=== PATIENT | female | born 1980 | race Caucasian/White ===

== ENCOUNTER → 2018-01-02 11:42 | Outpatient (CLI) | payer OTHER, SELFPAY ==
[2018-01-02 17:34] LABS: M R Staph aureus DNA By PCR Negative (Negative); Probe Check PASS; Specimen Processing Control PASS; Staph aureus DNA By PCR NEGATIVE (Negative)
[2018-01-03 03:51] LABS: Rapid Plasmin Reagin (RPR) NONREACTIVE (NONREACTIVE)
[2018-01-07 20:08] LABS: HSV 1 By PCR Negative (Negative); Immunoglobulin G 699 mg/dL (700-1600)
[2018-01-08 10:20] LABS: HSV 2 By PCR Negative (Negative); HSV 2 IgG < 0.91 index (0.00-0.90); Immunoglobulin M 38 mg/dL (26-217)
== END ==
PROVIDERS: Family Provider Physician Assistant; PCP Physician Assistant; Visit Provider Obstetrics & Gynecology
DX: Z11.3 Encounter for screening for infections with a predominantly sexual mode of transmission (principal)
CPT/HCPCS: 36415; 82784; 86592; 86695; 86696; 87529; 87640; 87902

== ENCOUNTER → 2018-07-16 13:39 | Outpatient (CLI) | payer OTHER, SELFPAY ==
[2018-07-19 12:50] LABS: HPV Reflexed? NOT INDICATED
== END ==
PROVIDERS: Visit Provider Obstetrics & Gynecology
DX: Z12.4 Encounter for screening for malignant neoplasm of cervix (principal)
CPT/HCPCS: 88175; G0145

== ENCOUNTER → 2018-12-15 10:12 | Outpatient (CLI) | payer OTHER, SELFPAY ==
--- NOTE | 2018-12-15 10:31 | MRI_ITS ---
STUDY: MRI LEFT ANKLE WITHOUT CONTRAST REASON FOR EXAM: Female, 38 years old. The patient presents with a history of lateral ankle pain with swelling. TECHNIQUE: Standardized fat and water weighted pulse sequences were obtained in all 3 orthogonal planes. COMPARISON: None. FINDINGS: Normal subcutis adipose space. There is interstitial edema of the anterior tibiofibular ligament of the distal tibiofibular articulation consistent with a mild partial high ankle sprain (coronal T2 fat sat series 7, images 13-14; axial T2 series 4, images 15-16).. There is a partial sprain of the anterior talofibular ligament with interstitial edema fibular insertion (axial T2 series 4, image 18). There is interstitial edema within the calcaneofibular ligament (axial T1 series 3, image 19; axial T2 series 4, image 19), also consistent with a partial sprain. The posterior talofibular ligamentous intact. Normal subtalar ligaments and sinus tarsi. Normal deltoid ligamentous complexes. Normal plantar calcaneonavicular (spring) ligament. There is a joint effusion of the tibiotalar articulation with capsular distension. Normal talar dome. There is a joint effusion of the posterior subtalar articulation with capsular distension. Normal talonavicular articulation. Normal calcaneocuboid articulation. Normal navicular-cuneiform articulations. Normal posterior tibialis tendon. Normal flexor digitorum longus tendon. Normal flexor hallucis longus tendon. Normal peroneus longus and brevis tendons. Normal tibialis anterior tendon. Normal extensor hallucis longus tendon. Normal extensor digitorum longus tendons. Normal Achilles tendon and teno-osseous insertion. Normal plantar fascia. Normal plantar calcaneal tubercles. Normal intrinsic muscles of the rearfoot. MRI/Lower Ext Joint Only (Routine) IMPRESSION: 1. Partial sprain of the anterior tibiofibular ligament of the distal tibiofibular syndesmosis (high ankle sprain). 2. High-grade partial lateral ankle sprain of the anterior talofibular and calcaneofibular ligaments. 3. Joint effusions of the tibiotalar and posterior subtalar articulations. Electronically Signed: Jun Casper DO at 14:50 EDT Tel , Service support ,
== END ==
PROVIDERS: Family Provider Physician Assistant; PCP Physician Assistant; Referring Provider Podiatrist; Visit Provider Podiatrist
DX: S93.492D Sprain of other ligament of left ankle, subsequent encounter (principal); M25.372 Other instability, left ankle; M25.572 Pain in left ankle and joints of left foot; M94.9 Disorder of cartilage, unspecified; X58.XXXD Exposure to other specified factors, subsequent encounter
CPT/HCPCS: 73721

== ENCOUNTER 2019-01-23 09:57 | Day surgery (SDC) | payer OTHER, SELFPAY ==
[2019-01-23 10:20] VITALS: BP 104/61; PULSE 78; RESP 15; TEMP 37; O2SAT 100; BMI 28.0
[2019-01-23 10:29] LABS: Internal QC Validated? YES +Cl - CLEAR BKGD; Pregnancy, Urine Negative Negative
[2019-01-23] MEDS: Lactated Ringers 1,000 ML 100 ML IV ×2 (10:35→15:02)
--- NOTE | 2019-01-23 11:27 | RAD_ITS ---
STUDY: X-RAY - RIGHT ANKLE REASON FOR EXAM: Female, 38 years old. TECHNIQUE: 1 view of the ankle. COMPARISON: None. FINDINGS: Stress view of the right ankle reveals no evidence of widening of either side of the ankle joint to suggest ligamentous injury. No soft tissue swelling. The anterior mortise is unremarkable. RAD/Ankle min 3 Views IMPRESSION: Negative study Electronically Signed: Romario Le, at 15:06 EST Tel , Service support ,
--- NOTE | 2019-01-23 11:27 | RAD_ITS ---
STUDY: X-RAY - LEFT ANKLE REASON FOR EXAM: Female, 38 years old. TECHNIQUE: 1 view of the ankle. COMPARISON: None. FINDINGS: Stress view of the left ankle reveal no evidence of widening of the medial aspect of the ankle joint to suggest ligamentous injury. The ankle mortise is unremarkable. No fracture seen RAD/Ankle min 3 Views IMPRESSION: Negative study. Electronically Signed: Romario Le, at 15:04 EST Tel , Service support ,
[2019-01-23] MEDS: Bupivacaine Mpf 0.5% 30 ML VIAL (14:00)
[2019-01-23 14:31] VITALS: BP 104/61; BP 117/69; PULSE 94; RESP 16; TEMP 36.9; O2SAT 94
--- NOTE | 2019-01-23 14:43 | DCINST_ITS ---
Discharge Diet: No Restrictions Discharge Activity: May Shower - only with shower bag in place. do not remove dressing or splint Weight Bearing Status: No weight bearing Keep extremity elevated above heart level: Left Leg Call your doctor if your incision/area has: Continuous Slow Oozing, Sudden Increased Bleeding, Increased Pain/ Swelling, Increased Redness, Foul Smelling Discharge, Swelling at the incision site Call your doctor if you observe: Fever of 101 or Higher, Numbness or Tingling, Shortness of breath, Chest pain, Calf discomfort, Uncontrolled pain Cleanse incision/area with: Keep Dressing Clean & Dry Allergies/Adverse Reactions: Allergies amoxicillin Allergy (Verified 01/23/19 10:15) Hives Penicillins [PCN] Allergy (Verified 01/23/19 10:15) Unknown Sulfa (Sulfonamide Antibiotics) Allergy (Verified 01/23/19 10:15) Shortness of breath Medications to take at Discharge multivitamin tablet 1 tab PO QDAY 03/13/17 Paroxetine [Paxil] 20 mg PO QHS 01/16/19 Primary Care Physician: Reid Townsend PA [Primary Care Provider] - Test Results: Test results from this visit will be discussed in further detail at your follow- up appointment, if applicable. Please Follow Up With: Rufina Galindo DPM When: [facility]. Call [phone] sooner if questions. Proposed Discharge Date: 01/23/19
[2019-01-23 14:45] VITALS: BP 104/61; BP 116/62; PULSE 97; RESP 16; O2SAT 94
--- NOTE | 2019-01-23 14:45 | OP.PCM_ITS ---
Problem List (1) Sprain of other ligament of left ankle, subsequent encounter Status: Chronic (2) Sprain of tibiofibular ligament of left ankle, subsequent encounter Status: Chronic (3) Pain in left ankle and joints of left foot Status: Chronic (4) Other instability, left ankle Status: Chronic (5) Other synovitis and tenosynovitis, left ankle and foot Status: Chronic Report of Operation Date of Procedure: 01/23/19 Pre-Operative Diagnosis: Left ankle sprain with tearing and instability involvin g the lateral ankle ligaments and also distal ankle syndesmosis. Left ankle synovitis. Left ankle pain Post-Operative Diagnosis: Left ankle sprain with tearing and instability involving the lateral ankle ligaments and also distal ankle syndesmosis. Left ankle synovitis. Left ankle pain Surgery/Procedure Performed:: Fluoroscopy guided stress test left ankle. Ankle arthroscopy with synovectomy left. Left lateral ankle stabilization including Brostrom Begum with internal brace augmentation. Repair of ankle syndesmosis with FiberWire Description of Surgical Findings:: Hemostasis: Well-padded pneumatic left ankle tourniquet, 72 minutes, 315 mmHg Materials: 2-0 Vicryl, 4-0 nylon, 1 arthrex internal brace, 1 arthrex syndesmosis tight rope, 2 arthrex small suture taks/fiber wire anchors The patient tolerated the procedure and anesthesia well. She was transported to the PACU with vital signs stable and vascular status intact to the left lower extremity. She will be discharged home upon continued stability. She had intraoperative stress fluoroscopy performed after repairs were made to confirm resolution of laxity. There also no other acute injuries noted and the placed hardware was in the desired position and trajectory. Postoperative orders were entered electronically. recycling attendant: none - Surgeon: Rufina Galindo DPM. Slice Plug Cutter Operator: Edy Castellano [id number] Type of Anesthesia:: General, Local - Intraoperative: 10 cc of 1% lidocaine with epinephrine administered to arthroscopy portal sites and intra-articular to the ankle Postoperative: 23 cc of one-to-one mixture of 1% lidocaine plain and 0.5% Marcaine plain administered typical left ankle block fashion and infiltrated manner to incision sites left Specimen's removed: none Estimated Blood Loss (mL): < 100 mL Description of Procedure: Indications: This 38-year-old female with significant past medical history of prior deep venous thrombosis after contralateral foot surgery continues to complain of left ankle pain and instability. She had a bad ankle sprain on September 01, 2017 which resulted in chronic instability, bruising, pain, and swelling. She is failed conservative care including rest, activity modification, bracing, ice, elevation, NSAIDs. She is unable to complete her desired exercise or daily activities. She like to proceed forward surgical intervention this time. Her neurovascular status is intact. Clinical panel palpation is over the lateral ankle ligaments and also to the distal syndesmosis area. She also has pain at the syndesmosis area with the proximal leg squeeze test on the left lower extremity. She does have some laxity and pain with anterior drawer test without crepitation. She has pain on palpation along the anterior ankle joint line as well and an effusion. Ankle x-rays do not demonstrate any fracture dislocation. Ankle mortise appears to be in a well aligned rectus position and there is no visualized osteochondral defect of the talus noted. Preoperative MRI demonst rated anterior and posterior tibiotalar joint capsular extension with effusion, tearing and intrasubstance edema noted to the anterior talofibular ligament, calcaneofibular ligament, and anterior inferior tibiofibular ligament consistent with a syndesmosis injury. There is no visualized talar osteochondral defect or deltoid ligament injury suspected. The peroneal tendons also appear to be intact. The preoperative indication, planned procedure, possible benefits, risks, complications, and anticipated healing time management were discussed in detail with the patient. She understands elects to proceed with surgery at this time. Informed surgical consent and surgical limb were signed. She understands risks and complications include but not limited to following: pain, swelling, scarring, delayed or nonhealing, over or under correction, need for further surgery, continued instability, blood clot, allergic reaction, loss of limb, function, life, chronic pain syndrome. No guarantees were made. I answered all her questions. Her preoperative history and physical exam was reviewed and her preoperative diagnostic data were also reviewed. Procedure in detail: The patient was transferred to the operating room via cart in the supine position. Final verification of patient, surgery, limb designation was performed via the timeout procedure. General anesthesia was initiated by the amber nesthesia team. Preoperative antibiotic was administered. At this time fluoroscopy guided ankle stress test was performed and compared to the contralateral limb while she was sedated. The anterior drawer did demonstrate mild additional anterior translation compared to the contralateral limb. There was a mild less than 5 degrees difference in the talar tilt test noted. And with the stress ankle joint dorsiflexion with external rotation, there was additional motion available at the distal tibiofibular communication when evaluated on the mortise view compared to the contralateral limb. Next, a well- padded left thigh tourniquet was placed. The left limb was placed in a well- padded ferkel leg sears and the left lower extremity was prepped and draped in the usual aseptic manner. The planned arthroscopic portal sites and vital structures were confirmed and marked preoperatively. Arthroscopy equipment was set up and and white balance was performed. The ankle joint level was confirmed with intraoperative fluoroscopy and also was insufflated with lidocaine with epinephrine and additional normal saline at room temperature. Dorsiflexion of the ankle was noted at this time. The purpose of this was to anesthetize the portal sites and reduce blood in the surgical field to improve visualization. The anterior medial portal site was entered with a small incision and hemostat was used to perform blunt dissection down the capsular layer. A blunt obturator was used to enter the tibiotalar joint space and was further replaced with the arthroscope with cannula. Transillumination was performed to the lateral aspect and an additional small stab incision was made lateral to the extensor tendon and blunt dissection was performed to enter the capsular layer taking care to to protect and retract any neurovascular structures throughout the entire procedure. An initial joint survey was conducted with a probe for assistance. There was a moderate amount of synovitis to the anterior tibiotalar communication as well as the lateral gutter more than the medial gutter. A 2.9 shaver was entered into the joint and a synovectomy was performed. Next a probe was entered into the joint and the cartilage was tested for any soft spots or disruption which none of this was identified. There are no osteochondral lesions identified. The anterior inferior tibiofibular ligament was visualized and was noted to be hypertrophic. The probe was entered into the distal anterior syndesmosis site and gapping of approximately 3 mm was noted. This supports a probable disruption of recurrent injury to the structure. The decision to move forward with repair was made given this arthrscopic information in combination with clinical setting, MRI and stress test findings. At this time the arthroscopy was completed and imaging studies were obtained in a methodical manner. The arthroscopy equipment was next removed from the ankle joint and the portal sites were irrigated with saline. Reapproximation of the skin portal sites was performed with horizontal mattress 4-0 nylon. The left lower extremity was removed from the leg sears and was placed in a straight standard supine position on the operating room table. Next, attention was directed to the lateral aspect of the left ankle joint. Esmarch bandage used to exsanguinate the limb and the tourniquet was inflated at this time. A linear incision was made over the distal aspect of the fibula extending onto the lateral aspect of the foot to gain good access to the lateral ankle ligament complex. Blunt dissection was next performed down to the superior inferior retinaculum and to expose the chronic hypertrophic thickened anterior talofibular and calcaneofibular ligaments that seemed to be invaginating into the lateral ankle gutter as well. Care was taken to identify, protect, retract the peroneal tendons and neurovascular structures at this point and throughout the remainder of surgery. The thickened lateral ankle ligaments were incised with a 15 blade scalpel and were debrided with a rongeur. This structure was attenuated, loose, and slightly discolored. Joint fluid was noted. The structure was reflected off the distal aspect of the fibula and was removed with a rongeur. Next the target site for the internal brace swivel lock on the talus body was selected utilizing intraoperative guide wire for confirmation. A 4.75 swivel lock anchor was applied according to standard protocol to the body of the talus taking care to avoid the adjacent joint structures. Next, two small louis anchors were applied to the distal fibula to the enforce the insertion aspects of the ATFL as well as the calcaneofibular ligament. The material of the internal brace was a fiber tape that was applied in an extra articular manner. The Brostr?m part of the procedure was performed at this time utilizing pants over vest technique. Next the proximal part of the internal brace was applied to the central distal fibula and was secured with a 3.5 swivel lock anchor. Care was taken to avoid over tightening the structure of placing a hemostat underneath it during the securing process. Next, augmentation was additionally performed with the begum part if the proceure including incorporation of the inferior extensor retinaculum into the repair site with 2-0 vicryl. Care was also taken to complete this repair with the ankle hanging over a stack of towels to prevent anterior translation, and by holding the left foot on the ankle in a neutral and slightly everted position. Solid fixation was achieved and a stress test was performed at this time including talar tilt and anterior drawer test. No gross instability was noted and it was improved compared to preoperative assessment. Next, attention was directed to the lateral aspect of the left ankle essentially over the fibula bone. A 1/2 cm linear incision was made through the skin and blunt dissection was performed down to the fibula. The guide wire to place the FiberWire for syndesmosis repair and this was placed under fluoroscopy guidance. Care was taken to avoid over angulating this placement and was placed in a neutral central position to avoid malrotation. Next the FiberWire was applied according to standard protocol and was tightened with hand tightness to avoid over compression or tightening. During the tightening position the ankle was placed in a neutral position. Solid fixation was achieved and this was confirmed with intraoperative fluoroscopy including stress ankle dorsiflexion and external rotation. There was no rotational instability or gapping noted between the distal aspect of the tibia and fibula and it was not deemed necessary to further directly repair the anterior inferior tibiofibular ligament structure at this time. The ankle was taken through a smooth and gliding range of motion. Final intraoperative fluoroscopy x-rays were reviewed demonstrating a rectus ankle position with hardware placed with desired trajectory and positioning. No acute injuries were noted. The surgical sites were copious irrigated with normal saline. The tourniquet was deflated at this time. Brisk capillary refill time was noted to all digits of the left foot. No pulsatile bleeding was noted and minimal electrocauterization was needed. Deep closure was performed with 2- 0 Vicryl and the skin was reapproximated with 4-0 nylon utilizing simple and horizontal mattress techniques. Local anesthetic was administered as noted. A postoperative dressing consisting of Adaptic soaked in Betadine, gauze, Kerlix, and abdominal pads were applied. Next a well-padded left posterior mold was applied with the left ankle in a neutral was slightly everted position noted. After procedure: The patient tolerated the procedure and anesthesia well. She was transported to the PACU with vital signs stable and vascular status intact to the left lower extremity. She was advised to ice and elevate for pain and inflammation management. She was advised to maintain a strict nonweightbearing status to left lower extremity with her dressing and splint intact. She has crutches at home already and a additional prescription for her was also provided this time. She is given pain medication and was advised previously on proper and safe use, [place]. She was also given a two-week prescription for Xarelto and was advised on safe and proper use. To monitor for DVT development. It is noted she has had a prior DVT after lower extremity surgery. [facility] 1 week or call sooner if she has any questions or concerns. Her postoperative orders were entered electronically. Rufina Galindo DPM, [facility] Grafts/Implants Used: Arthrex - Complications none - Admit VTE Documentation VTE Present on Admission: No VTE Mechan Device Prophylaxis: SCD's VTE Pharm Prophylaxis ordered?: Yes
[2019-01-23 15:00] VITALS: BP 104/61; BP 113/62; PULSE 98; RESP 16; O2SAT 94
[2019-01-23 15:03] VITALS: BP 104/61; BP 115/65; PULSE 98; RESP 16; TEMP 36.9; O2SAT 94
[2019-01-23 15:30] VITALS: BP 104/61
== END 2019-01-23 16:12 | disposition home or self-care (01) ==
LOC: SDC 09:58 → AC 09:59
PROVIDERS: Anesthesiology; Family Provider Physician Assistant; PCP Physician Assistant; Referring Provider Podiatrist; Visit Provider Podiatrist
PROC: (CPT 29999; principal; 2019-01-23 11:15)
DX: M25.372 Other instability, left ankle (principal); S93.492A Sprain of other ligament of left ankle, initial encounter; S93.432A Sprain of tibiofibular ligament of left ankle, initial encounter; X58.XXXA Exposure to other specified factors, initial encounter; Y93.9 Activity, unspecified; Y92.9 Unspecified place or not applicable; Y99.9 Unspecified external cause status; F41.9 Anxiety disorder, unspecified; Z86.718 Personal history of other venous thrombosis and embolism
CPT/HCPCS: 27696; 27829; 29895; 73610; 76000; 81025; C1713; J7120; J2405

== ENCOUNTER 2019-03-11 11:59 | Outpatient (RCR) | payer OTHER, SELFPAY ==
--- NOTE | 2019-03-11 13:12 | HP.PTEVAL ---
Patient's Visit Information CORDELL STACK is a 38 year old F referred to Physical Therapy by Rufina Glaindo DPM with a diagnosis of L ankle surgery 01/23/19. Date of Evaluation: 03/11/19 Physical Therapist: Drew Atkinson, PT, ATC - Visit Plan Frequency: 1x/Week Duration: 1 Week Plan: Issue and instruct pt on HEP for L ankle strengthening - Subjective Findings: DOI: September 11, 2018. Pt reports she stepped off of a cart and into a whole, severely spraining her L ankle. Pt reports conservative Rx was attempted, but eventually she had to have surgery in order to repair L ankle syndesmosis, and synovectomy. DOS: 01/23/19. Pt reports she had NWBing for 4 weeks after the surgery, and now has been wearing a CAM boot for the past 3 weeks. Pt reports she is still very swollen and stiff at this time. Pt notes she has very minimal pain depending on wheat she is doing at the time. Pt reports no tingling or numbness in L LE. Occasional sleep difficulty secondary to pain. No PMHx of L ankle surgery in the past. 0/10 pain at rest, 4/10 pain at worst. - Pain L ankle s/p 01/23/19 Pain Intensity (Out of 10): 0 Pain Intensity Range: 4 - Objective Neuro: B LE sensation is WNL to light touch. Observation: Incisions healed. Minor swelling noted at this time. Minor discoloration noted. Girth: B feet 48 cm. ROM: R ankle DF= 15, PF= 60 degrees. L ankle DF= 0, PF= 50 degrees. MMT: R ankle 5/5 throughout. L ankle 3+/5 throughout - Goals Goal 1:: I with HEP Goal Time Frame: 1 Week - Rehabilitation Potential Physical Therapy Diagnosis: L ankle pain, weakness, and limited ROM secondary to L ankle surgery Rehabilitation Potential: Good - Anticipated Interventions Patient/Client Instruction: Educate patient on: Condition, Plan of Care For the Purpose of:: To improve self management Therapeutic Exercise to Include: Strength training, Endurance training, Balance training, Flexibilty training, Passive ROM, Active ROM For the Purpose of:: To decrease pain, To increase ROM, To improve muscle performance and motor function Cryotherapy (ice pack, ice massage): Yes For the Purpose of:: To decrease pain Thank you for the opportunity to evaluate your patient. For Medicare and Medicare HMO plans, please review the plan of care and approve it. It will need to be FAXED BACK to us at [phone] for Medicare purposes. For Medicare only, by signing this I certify the plan of care. Please let me know if there are questions or concerns regarding this plan of care. Physician Signature: Date:
--- NOTE | 2019-05-13 09:12 | HP.PT.NRP ---
CORDELL STACK was seen in my office for initial evaluation on 03/11/19. The following Plan of Care was established for this patient: Initial Frequency: 1x/Week Initial Duration: 1 Week Patient/Client Instruction: Educate patient on: Condition, Plan of Care For the Purpose of:: To improve self management Therapeutic Exercise to Include: Strength training, Endurance training, Balance training, Flexibilty training, Passive ROM, Active ROM For the Purpose of:: To decrease pain, To increase ROM, To improve muscle performance and motor function Cryotherapy (ice pack, ice massage): Yes For the Purpose of:: To decrease pain This patient was last seen in our office . Pertinent comments regarding their Physical therapy will appear below: Pt was evaluated on Mar 11, 2019 for L ankle pain and a POC was established. Pt has not returned through todays date and is discontinued at this time At this point I will be discontinuing this patient from physical therapy. I would be happy to see this patient again in the future if found appropriate by the physician. Thank you! Drew Atkinson, PT, ATC
== END 2019-03-11 19:00 | disposition home or self-care (01) ==
LOC: PT 11:59
PROVIDERS: Family Provider Physician Assistant; PCP Physician Assistant; Referring Provider Podiatrist; Visit Provider Podiatrist
DX: Z98.890 Other specified postprocedural states (principal)
CPT/HCPCS: 97110; 97161

== ENCOUNTER → 2019-12-22 | Outpatient (CLI) | payer OTHER, SELFPAY ==
[2019-12-27 13:15] LABS: HPV APTIMA, High Risk Negative (Negative)
[2019-12-27 23:17] LABS: HPV Reflexed? YES, CHARGE PATIENT
== END | disposition home or self-care (01) ==
LOC: LABSPEC 14:25
PROVIDERS: PCP Physician Assistant; Visit Provider Student in an Organized Health Care Education/Training Program
DX: Z12.4 Encounter for screening for malignant neoplasm of cervix (principal)
CPT/HCPCS: 87624; 88175; G0145

== ENCOUNTER 2024-03-20 13:13 | Day surgery (SDC) | payer OTHER, SELFPAY ==
--- NOTE | 2024-03-16 13:15 | PCM.HP.BLA ---
History and Physical Date of Admission: 03/20/24 HPI: The patient is a 43 year old female presenting for pre-operative visit. She is scheduled for Hysteroscopy D&C with endometrial ablation and bilateral salpingectomy for sterilization for sterilization request nad menorrhagia. Procedure discussed along with risks, benefits and complications. Other alternatives discussed for management. Consent form signed? No - virtual preop. PAST MEDICAL HISTORY PAST MEDICAL HISTORY Diagnosis Date ? DVT (deep venous thrombosis) (HCC) 12/15/2010 after foot surgery, was in a cast ? 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 Kidney stone PAST SURGICAL HISTORY PAST SURGICAL HISTORY Procedure Laterality Date ? DELIVERY ONLY , low transverse x2 ? CYSTOSCOPY 11/25/2009 Dr. Vides Kidney stone. ? FOOT Right Patient reproted, (LT) ankle ? PAST SURGICAL HISTORY OF stabismus CURRENT MEDICATIONS Current Outpatient Medications Medication Sig Dispense Refill ? venlafaxine ER (EFFEXOR XR) 75 mg 24 hr capsule Take 1 capsule by mouth once daily. 90 capsule 1 No current facility-administered medications for this visit. ALLERGIES: Amoxicillin, Penicillins, and Sulfa (Sulfonamide Antibiotics) PERSONAL HISTORY: SOCIAL HISTORY Social History Tobacco Use ? Smoking status: Never ? Smokeless tobacco: Never Vaping Use ? Vaping status: Never Used Substance Use Topics ? Alcohol use: Yes Comment: once a month ? Drug use: No FAMILY HISTORY: FAMILY HISTORY FAMILY HISTORY Problem Relation Age of Onset ? Arthritis Mother ? Thyroid Nodule Mother one side was removed ? Heart Father ? Cancer Maternal Grandmother Breast Ca ? Hypertension Maternal Grandmother ? Alzheimer's Disease Maternal Grandmother ? Hypertension Maternal Grandfather ? Colon Cancer Maternal Grandfather REVIEW OF SYMPTOMS: GENERAL: denies fevers or chills ENDOCRINOLOGY: has not been on steroids Cardiology : denies palpitations or chest pain Respiratory: denies SOB or cough Hematology: denies history of prolonged bleeding or easy bruising or VTE Allergy: Denies history of personal or family history of allergy to anesthesia PELVIC US 02/07/24: Indication Evaluation of abnormal uterine bleeding: menorrhagia Impression Anteverted fibroid uterus that measures 88 mm x 41 mm x 54 mm. The largest fibroids are described below. Endometrium has a normal trilaminar appearance and measures 8.6 mm. Normal endometrial contour. Both ovaries are visualized and appear normal. No adnexal masses were observed. There is no free fluid visualized in the peritoneal cavity. Recommendations Follow up as clinically indicated. History Medical History Surgery: section x 2 Menstrual History LMP on 01/30/2024 Method Transabdominal, transvaginal, 3D ultrasound examination, Color Doppler examination. View: Adequate visualization Uterus Uterus: Visualized Uterus position: anteverted Description of uterine malformations: none Myometrium: heterogeneous Endometrium: three-layer pattern Cervix details: cystic lesions identified suggesting superficial Nabothian cysts Uterus length 88 mm Uterus width 54 mm Uterus height 41 mm Uterus Vol 102.1 cm? Endometrial thickness, total 8.6 mm Fibroids: Fibroids identified Uterine fibroid D1 10 mm Uterine fibroid D2 11 mm Uterine fibroid D3 12 mm Uterine fibroid mean 11.0 mm Uterine fibroid vol 0.686 cm? Uterine fibroids findings: Right lateral wall. intramural Right Ovary Rt ovary: Visualized Rt ovary morphology: premenopausal normal follicular Rt ovary D1 27 mm Rt ovary D2 19 mm Rt ovary D3 18 mm Rt ovary Vol 4.7 cm? Left Ovary Lt ovary: Visualized Lt ovary morphology: premenopausal normal follicular Lt ovary D1 25 mm Lt ovary D2 18 mm Lt ovary D3 21 mm Lt ovary Vol 4.9 cm? PHYSICAL EXAMINATION: VITALS: Last menstrual period 01/28/2024. GENERAL: The patient is well nourished, well hydrated in no acute distress. , The patient is oriented to time, place, and person. NECK: Supple. No lynphadenopathy, normal thyroid, no thyromegaly. IMPRESSION: menorrhagia, sterilization request PLAN: The risks/benefits/alternatives and personal involved for the planned hysteroscopy D&C with endometrial ablation and tubal sterilization were reviewed with the patient. Her questions were answered to her satisfaction and she desires to proceed.. I reviewed with her postop instructions and expectations. I have reviewed and updated past medical and surgical history, medications and allergies Assessment & Plan Assessment/Plan (1) Consultation for sterilization: (2) Menorrhagia: (3) Intramural uterine fibroid:
[2024-03-20] VITALS (10 sets, daily range): BP systolic 108–134; BP diastolic 58–93; PULSE 78–96; RESP 14–16; TEMP 36.2–37; O2SAT 92–97; BMI 28.4
[2024-03-20 13:42] LABS: Internal QC Validated? YES +Cl - CLEAR BKGD; Pregnancy, Urine Negative Negative
[2024-03-20 13:44] LABS: Hematocrit 39.6 % (37-47); Hemoglobin 13.2 g/dL (12.0-15.0); Mean Corp Hgb Conc 33.3 g/dL (32-36); Mean Corpuscular Volume 83.9 fL (81-99); Mean Platelet Vol. 10.8 fl (6.2-12.0); Platelet Count 255 K/mm3 (150-450); RBC Distribution Width CV 12.9 % (11.6-14.6); RBC Distribution Width SD 39.7 fl (35.1-43.9); Red Blood Count 4.72 M/mm3 (4.2-5.4)
[2024-03-20] MEDS: 0.9% Normal Saline (1000mL) 1,000 ML 15 ML IV (14:00)
[2024-03-20] MEDS: Ketorolac 30 MG/ML Syringe IV (14:00)
[2024-03-20] MEDS: Acetaminophen 500 MG Tablet 1000 MG PO (14:00)
--- NOTE | 2024-03-20 14:07 | PRE.ANES_ITS ---
ASA Classification* ASA Classification ASA Classification: 2 Assessment & Plan Anesthesia* Anesthesia Assessment Anesthesia Assessment: Discussed sedation and/or anesthesia options, risks, benefits, and alternatives with patient/parents/legal guardian/POA. Questions invited. The patient/parents/legal guardian/POA seems to understand and agrees to proceed with anesthesia plan. Reviewed the physical assessment, medical history, allergy history and patient home medications list prior to surgery/procedure/anesthetic and documented any changes. Performed airway and anesthesia risk assessments. Anesthesia Type Anesthesia Type: General and MAC Anesthesia Focused Assessment* Temperature: 97.2 F Pulse Rate: 78 Blood Pressure: 134/93 Respiratory Rate: 16 Pulse Ox: 97 Oxygen Delivery Method: Room Air Airway Assessment Mouth opens: >3 cm Mallampati Score: II Teeth Condition: Caps/Crowns Focused Labs Anesthesia Preop lab: CBC WBC 7.0 K/mm3 (4.4-11.0) 03/20/24 13:35 RBC 4.72 M/mm3 (4.2-5.4) 03/20/24 13:35 Hgb 13.2 g/dL (12.0-15.0) 03/20/24 13:35 Hct 39.6 % (37-47) 03/20/24 13:35 Plt Count 255 K/mm3 (150-450) 03/20/24 13:35 CHEMISTRY COAG Urine Test Negative Negative 03/20/24 13:25 Pre-Assessment Diagnosis/Proposed Procedure Planned Operative Procedure(s): (B) Laparoscopic bilateral salpingectomy, hysteroscopy d&c, endometrial ablation-Marie Anesthesia History 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 When Was Last Pacemaker Check QUESTION #4 FULL TEXT: You/Your Family Experience fever (hyperthermia) with Anesthesia Last Oral Intake Last Oral intake: Last Oral Intake NPO since 19:00 03/20/24 13:33 Meds taken in AM with sips of No 03/20/24 13:33 water? Meds patient instructed to take am of surgery PONV PONV - heavy equipment sales associate: PONV - heavy equipment sales associate Female Yes 03/06/24 09:05 HX of Motion Sickness No 03/06/24 09:05 HX of N/V After Surgery No 03/06/24 09:05 Non-Smoker No 03/06/24 09:05 Duration of Surgery greater No 03/06/24 09:05 than 60 minutes Number of Risk Factors 1 03/06/24 09:05 PONV Score Low Risk 03/06/24 09:05 Height & Weight Height & Weight: Anesthesia: Height & Weight Height 5 ft 03/20/24 13:33 Weight: 66 kg 03/20/24 13:33 Body Mass Index (BMI) 28.4 03/20/24 13:33 Respiratory Assessment Respiratory Assessment - heavy equipment sales associate: Respiratory Tract Infection Hx - heavy equipment sales associate Hx Respiratory Tract Infection No 03/06/24 09:05 STOP Sleep Apnea STOP Sleep Apnea - heavy equipment sales associate: STOP Sleep Apnea - heavy equipment sales associate Hx Hypertension No 03/06/24 09:05 Hx Sleep Apnea No 03/06/24 09:05 CPAP No 03/06/24 09:05 BIPAP Do you snore loudly (louder No 03/06/24 09:05 than talking or can be heard Do you often feel tired/ No 03/06/24 09:05 fatigued/ sleepy during daytime? Has anyone observed you stop No 03/06/24 09:05 breathing during sleep? STOP Results Negative 03/06/24 09:05 QUESTION #5 FULL TEXT : Do you snore loudly (louder than talking or can be heard through closed doors)? 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 Specify any problems Hx of Preganancy in last 3 No 03/06/24 09:05 Months Nurse Filling Out Transfusion VCHRISTIN 03/06/24 09:05 & Questions: Date: 03/06/24 03/06/24 09:05 Time: 09:06 03/06/24 09:05 Patient unable to answer at this time (ie. confused, unrespo /Reproduction History /Reproductive History - heavy equipment sales associate: /Reproductive Hx- heavy equipment sales associate Hx Now No 03/06/24 09:05 Gestational Age (in weeks): EDC: Hx Hx Para Hx Section SAB No 03/06/24 09:05 Active Medications Active Medications: Current Medications Generic Name Dose Route Start Last Admin Trade Name Freq PRN Reason Stop Dose Admin Acetaminophen 1,000 mg 03/20/24 14:45 03/20/24 14:00 Acetaminophen 500 Mg Tablet PO 03/20/24 14:46 1,000 mg PREOP ONE Administration Sodium Chloride 1,000 mls @ 15 mls/hr 03/20/24 14:00 03/20/24 14:00 IV 03/26/24 03:19 15 mls/hr .Q48H JESSEE Administration Protocol Ketorolac Tromethamine 30 mg 03/20/24 14:45 03/20/24 14:00 Ketorolac 30 Mg/Ml Syringe IV 03/20/24 14:46 30 mg PREOP ONE Administration PFSH Medical History Wears contact lenses Wears glasses Alcohol use History of steroid therapy Non-smoker H/O strabismus Palpitations Kidney stone History of DVT (deep vein thrombosis) Home Medications ?Medication ?Instructions ?Recorded ?Last Taken ?Type multivitamin 1 tab PO QDAY 03/13/17 Unknown History venlafaxine 75 mg capsule,extended 75 mg PO DAILY 03/06/24 Unknown History release 24 hr Allergy/AdvReac Type Severity Reaction Status Date / Time amoxicillin Allergy Hives Verified 03/20/24 13:32 Penicillins (PCN) Allergy Unknown Verified 03/20/24 13:32 Sulfa (Sulfonamide Allergy Shortness Verified 03/20/24 13:32 Antibiotics) of breath Family History Father Heart disease Myocardial infarction, Onset Age: 45 Grandmother Hypertension Grandfather Hypertension Surgical History (Updated 03/06/24 @ 09:05 by Gena Mooney) Hx of wisdom tooth extraction Hx of foot surgery History of ankle surgery Hx of eye surgery History of cystoscopy H/O section Social History (Updated 03/14/17 @ 16:[address] Boy Quinones MD) Smoking Status: Never smoker alcohol intake: current details: occasional substance use type: does not use Review of Systems (Anesthesia) ROS Narrative System reviewed and no additional complaints, except as documented.
--- NOTE | 2024-03-20 14:45 | FALS_PTH ---
PATIENT: CORDELL STACK [place] [facility] [place][id number] AGE/SX: 43/F ROOM: RE03/20/[address]: Dr. Dipika Jane MD : 1980 BED: DIS: 03/20/2024 SPEC #: [id number] RECD: 03/20/24 17:17 STATUS: ASIA REAle #: [id number] CORONA: 03/20/24 14:[address]: Dipika Jane DEPT: SURGICAL PATHOLOGY RECD BY: Donna Reynoso ENTERED: 03/23/24 10:06 SP TYPE: FALL TUBES OTHR DR: KENNY Issa Tissues: A - Endometrium, NOS B - Fallopian tube Procedures: Surgery Specimen Level II Surgery Specimen Level IV HEADER OPERATION: Laparoscopic bilateral salpingectomy, hysteroscopy, D&C PRE-OP DIAGNOSIS: Consultation for sterilization, menorrhagia, intramural uterine fibroid TISSUE SUBMITTED: A- Endometrial curettings, B- Bilateral fallopian tubes - stitch on left MICROSCOPIC DIAGNOSIS A. Endometrial curettings: Dyssynchronous endometrium consisting of proliferative and secretory endometrium with glandular and stromal breakdown. Fragments of benign ecto and endocervical mucosa with acute and chronic inflammation. B. Bilateral fallopian tubes, salpingectomy: Bilateral fallopian tubes, no pathologic diagnosis. See comment. SJ: 03/24/2024 COMMENT B. Left fallopian tube also shows cautery artifacts at the fimbrial end. MICROSCOPIC DESCRIPTION Slides are reviewed. GROSS DESCRIPTION A. Received in fixative is one container labeled with the patient's name and designated Endometrial curettings. The specimen consists of multiple irregular fragments of hemorrhagic soft tissue that in aggregate measure 4 x 3 x 0.2 cm. The specimen is totally submitted in one cassette. B. Received in fixative is one container labeled with the patient's name and designated bilateral fallopian tubes - stitch on left. The specimen consists of bilateral fallopian tubes including fimbrial ends. Right fallopian tube measures 5.5 cm in length and 0.6 cm in diameter. Left fallopian tube measures 5.5cm in length and 0.5cm in diameter. Sections reveal unremarkable cut surfaces. Cotton Farmer sections are submitted in two cassettes. 1- right fallopian tube, 2-left fallopian tube. / ОЛЬГА: 03/23/2024 TC:5 CPT: 23688 [id number]
--- NOTE | 2024-03-20 14:51 | PCM.DC ---
Discharge Instructions Diet Discharge Diet: Light diet - advance as tolerated and - (Drink plenty of nonalcoholic fluids over the next 24 -48 hours) DC O2, CPAP, BIPAP needs Home O2 Discharge instructions: No Dressing / Incision Discharge Activity: May Take a Tub Bath (in 2 weeks) Return to work on:: 03/23/24 May shower in (days): 1 May resume sexual activity in: 2 weeks Additional Activity Instructions:: Ambulate often the next week after surgery. No tub baths for 2 weeks Dressing / Incision Call your doctor if your incision/area has: Continuous Slow Oozing, Sudden Increased Bleeding, Increased Pain/ Swelling, Increased Redness and Foul Smelling Discharge Call your doctor if you observe: Fever of 101 or Higher Cleanse incision/area with: Soap & Water and - (Your incisions have skin glue, it can get wet. Leave it on for 10 days or until it falls off.) Follow Up Care Please Follow Up With: Dipika Jane MD When: You do not need a follow up appointment. Call [phone] or send a Yummly message for questions Test Results: Test results from this visit will be discussed in further detail at your follow-up appointment, if applicable. Discharge Plan Admission Primary Reason for Your Visit: D&C, Endometrial abaltion and tubal sterilization Attending Provider: Dipika Jane Primary Care Provider: Reid Townsend Instructions Print Language: Greenlandic Discharge Orders/Prescriptions Prescriptions: New ibuprofen 600 mg tablet 600 mg PO Q6H PRN (Reason: Pain) 10 Days Qty: 30 1RF oxycodone 5 mg tablet 5 mg PO Q8H PRN (Reason: severe pain) 5 Days Qty: 5 0RF Continued multivitamin tablet 1 tab PO QDAY venlafaxine 75 mg capsule,extended release 24hr 75 mg PO DAILY Referrals / Follow Up: Reid Townsend, PA [Primary Care Provider] - Disposition Disposition (needs filled in before D/C Order can be placed): Home, Self Care
[2024-03-20] MEDS: Bupivacaine Mpf 0.5% 30 ML VIAL (15:50)
--- NOTE | 2024-03-20 16:00 | OP.PCM_ITS ---
Problems Associated Problem List Diagnoses (1) Intramural uterine fibroid: (2) Menorrhagia: (3) Consultation for sterilization: Operative Report (Standard) Operative Information Date of Procedure: 03/20/24 Pre-Operative Diagnosis: intramural uterine fibroid, menorrhagia, sterilization request Post-Operative Diagnosis: same Surgery/Procedure Performed: Hysteroscopy D&C with Marie endometrial ablation and bilateral salpingectomy sap bw consultant: Yes [employer] Spanish Teacher: Justine Norman MS3 Tasks completed by registrar assistant: Closing and Retracting Additional speech language pathologist assistant?: No Type of Anesthesia: General RN Documented Start/Stop Times: Operation Date: 03/20/24 14:45 Case Time Into Pre-Op 03/20/24 13:19 Out of Pre-Op 03/20/24 14:49 Procedure Start Time: 15:14 Procedure Stop Time: 15:57 Select all DRAINS/GRAFTS/IMPLANTS that apply: None Special Medications: none Estimated Blood Loss: 10 Fluids Replaced: 1000 Specimen collected: Yes Description of specimen(s) removed: endometrial curretings and bilateral fallopian tubes Description of surgery: The patient was taken to the operating room where she was prepped and draped in the dorsolithotomy position. A weighted speculum was placed in the vagina and the anterior lip of the cervix was grasped with a tenaculum. The uterus was dilated and the 5 mm hysteroscope was placed. There were no focal abnormalities in the uterus. The hysteroscope was removed and a gentle curettage was performed and endometrial curettings were handed off. The Marie device was readied. The uterus sounded to 7.5 cm and the cervix to 3.5 cm the device was set to 4 cm and seated in the uterus without difficulty. It passed the safety test on the first pass and the ablation cycle was completed without interruption. The device was removed and the Nimo uterine manipulator was placed. Attention was turned to the abdomen. All port sites were infiltrated with 0.5% Marcaine before skin incisions were made. A 5 mm intraumbilical incision was made. The anterior abdominal wall was tented up with 2 towel clamps while a 5 mm blade less trocar and sleeve were directly inserted. Intraperitoneal placement was confirmed with the laparoscope. The pneumoperitoneum was created and the underlying abdominal contents were intact. The patient was placed in Trendelenburg. Right and left lower quadrant ports were placed under direct visualization lateral to the inferior epigastric vessels. The bowel was swept away and the above findings were noted. There was some adhesions right in the operative field of the omentum to the anterior abdominal wall these were easily taken down with the Enseal device without difficulty. No other abdominal contents were compared to and within these filmy adhesions. The Enseal device was used to clamp seal and transect the antimesenteric portions of the right tube to the cornual insertion of the uterus. The tube was amputated from the uterus and the pedicles were all confirmed to be hemostatic. The same procedure was performed on the contralateral side. The specimens were brought out through a 5 mm port. The pedicles were again examined and found to be hemostatic. The lateral ports were removed under direct visualization and no active bleeding was noted. The pneumoperitoneum was released. The skin incisions were closed with Monocryl suture in a subcuticular fashion and skin glue. The vaginal instruments were removed and the vaginal sweep was completed by me. The procedure was performed by me with assistance other than as dictated above. All sponge and needle counts were correct and the patient was taken to the recovery room in stable condition. Surgical Findings: normal cevix, vagina, uterus tubes and ovaries. Complications Complications: No Admit VTE Documentation VTE Present on Admission: No VTE Mechan Device Prophylaxis: SCD's VTE Pharm Prophylaxis ordered?: No Reason prophylaxis not ordered: Procedure Not Indicated
--- NOTE | 2024-03-20 16:10 | PCM.POST.ANE ---
Anesthesia: Postop Eval I Current Vital Signs Temperature: 98.6 F Pulse Rate: 93 Blood Pressure: 124/75 Respiratory Rate: 14 Pulse Ox: 94 Assessment Airway patent: Yes Spontaneous unlabored respirations: Yes nausea: No Vomiting: No Anesthesia Complication: No Fluid Hydration Crystalloid volume administer (ml): 800 Total IV fluid infused: 800 Progress Note Anesthesia document: Postop Eval 1 completed: Yes
--- NOTE | 2024-03-20 16:59 | POSTOPAN2_ITS ---
Anesthesia Postop Eval I Sum Postop Eval Completion status Anesthesia document: Postop Eval 1 completed: Yes Anesthesia Postop Eval I Summary Anesthesia Postop Eval I Summary: Anesthesia Postop Eval I: Assessment Summary Airway patent Yes 03/20/24 16:10 [email or web address] Spontaneous unlabored Yes 03/20/24 16:10 [email or web address] respirations Mental status nausea No 03/20/24 16:10 [email or web address] Vomiting No 03/20/24 16:10 [email or web address] Anesthesia Postop Eval I: Fluid Summary Crystalloid volume administer 800 03/20/24 16:10 [email or web address] (ml) Colloids volume administered ( ml) Blood Product volume administered (ml) Total IV fluid infused 800 03/20/24 16:10 [email or web address] Anesthesia Postop Eval I: Summary Notes Anesthesia Complication No 03/20/24 16:10 [email or web address] Anesthesia Complication Comment: Post-operative progress note Anesthesia: Postop Eval II Evaluation Mental status: Awake Pain Level: 0 nausea: No Vomiting: No Complications Anesthesia Complication: No
--- NOTE | 2024-03-20 16:59 | PCM.POSTANE2 ---
Anesthesia Postop Eval I Sum Postop Eval Completion status Anesthesia document: Postop Eval 1 completed: Yes Anesthesia Postop Eval I Summary Anesthesia Postop Eval I Summary: Anesthesia Postop Eval I: Assessment Summary Airway patent Yes 03/20/24 16:10 [email or web address] Spontaneous unlabored Yes 03/20/24 16:10 SOIL [email or web address] respirations Mental status nausea No 03/20/24 16:10 SOIL [email or web address] Vomiting No 03/20/24 16:10 [email or web address] Anesthesia Postop Eval I: Fluid Summary Crystalloid volume administer 800 03/20/24 16:10 [email or web address] (ml) Colloids volume administered ( ml) Blood Product volume administered (ml) Total IV fluid infused 800 03/20/24 16:10 [email or web address] Anesthesia Postop Eval I: Summary Notes Anesthesia Complication No 03/20/24 16:10 [email or web address] [email or web address] Anesthesia Complication Comment: Post-operative progress note Anesthesia: Postop Eval II Evaluation Mental status: Awake Pain Level: 0 nausea: No Vomiting: No Complications Anesthesia Complication: No
[2024-03-20] MEDS: oxyCODONE 5 MG Tablet PO (17:17)
== END 2024-03-20 18:10 | disposition home or self-care (01) ==
LOC: SDC 13:16 → AC 13:17
PROVIDERS: Anesthesiology; PCP Physician Assistant; Referring Provider Obstetrics & Gynecology; Visit Provider Obstetrics & Gynecology
PROC: (CPT 58661; principal; 2024-03-20 14:30)
DX: N72 Inflammatory disease of cervix uteri (principal); N92.0 Excessive and frequent menstruation with regular cycle; Z30.2 Encounter for sterilization
CPT/HCPCS: 58563; 58661; 00952; 81025; 85027; 88302; 88305; J2405